=== PATIENT | male | born 1995 | race Caucasian/White ===

== ENCOUNTER 2016-07-24 06:08 | Emergency (ER) | payer SELFPAY ==
--- NOTE | 2016-07-24 06:49 | ED ---
Complaint/Male - History of Current Complaint Chief Complaint: EDUrogenitalProblems Time Seen by Provider: 07/24/16 06:32 Hx Obtained From: Patient Onset/Duration: Gradual Onset - started with burning urination 3 days ago, developed L side pain next day. pain is intermittant, sometimes relieved by repositioning. has tried no meds. Over past 24h has noted green penile d/c and diff starting urine stream Timing: Intermittent Severity Initially: Mild Severity Currently: Moderate Location: Flank - pt points to L lateral low back Character: Burning Aggravating Factor(s): Voiding Alleviating Factor(s): Nothing Associated Signs And Symptoms: Back Pain, Dysuria, Penile Discharge - Allergies/Home Medications Allergies/Adverse Reactions: Allergies Allergy/AdvReac Type Severity Reaction Status Date / Time No Known Allergies Allergy Verified 02/24/14 23:38 PMH/Surg Hx/FS Hx/Imm Hx Previously Healthy: Yes Endocrine/Hematology History: Denies: Hx Anticoagulant Therapy Cardiovascular History: Denies: Hx Hypertension Respiratory History: Reports: Hx Asthma - CHILD GI History: Denies: Other GI Disorders History: Denies: Hx Kidney Stones, Other Problems/Disorders Musculoskeletal History: Denies: Other Musculoskeletal History Sensory History: Denies: Hx Hearing Aid Neurological History: Denies: Other Neuro Impairments/Disorders Psychiatric History: Denies: Other Psychiatric Issues/Disorders Infectious Disease History: No Infectious Disease History: Denies: Traveled Outside the [place] in Last 30 Days - Family History Known Family History: Positive: None Negative: Cardiac Disease - Social History Occupation: Employed Full-time - [employer] Lives: Alone Alcohol Use: Occasionally Substance Use Type: Reports: None Smoking Status (MU): Never Smoked Tobacco Review Of Systems Constitutional: Positive: Negative. Negative: Fever, Chills Skin: Positive: Negative. Negative: Rash Respiratory: Positive: Negative Cardiovascular: Positive: Negative Gastrointestinal: Negative: Abdominal Pain, Vomiting, Diarrhea Genitourinary: Positive: Dysuria, Other - denies testicular pain, or penile/ scrotal lesions. Negative: Hematuria, Frequency Neurological: Positive: Negative Psychological: Positive: Negative All Other Systems Reviewed And Are Negative: Yes Physical Exam Triage Information Reviewed: Yes Vital Signs On Initial Exam: Initial Vitals Temp Pulse Resp BP Pulse Ox 97.6 F 74 16 131/79 100 07/24/16 06:17 07/24/16 06:17 07/24/16 06:17 07/24/16 06:17 07/24/16 06:17 Vital Signs Reviewed: Yes Appearance: Positive: Well-Appearing, No Pain Distress, Well-Nourished Skin: Positive: Warm, Skin Color Reflects Adequate Perfusion, Dry Respiratory/Lung Sounds: Positive: Clear to Auscultation Cardiovascular: Positive: Normal, RRR, Pulses are Symmetrical in both Upper and Lower Extremities Abdomen Description: Positive: Nontender, No Organomegaly, Soft. Negative: CVA Tenderness (R), CVA Tenderness (L) Bowel Sounds: Positive: Present Musculoskeletal: Positive: Normal, Strength/ROM Intact Neurological: Positive: Normal, Alert, Oriented to Person Place, Time Psychiatric: Positive: Normal Diagnostics - Vital Signs Vital Signs Temp Pulse Resp BP Pulse Ox 07/24/16 06:17 97.6 F 74 16 131/79 100 - Laboratory Result Diagrams: 07/24/16 06:35 07/24/16 06:35 Lab Statement: Any lab studies that have been ordered have been reviewed, and results considered in the medical decision making process. Complaint Male Course/Dx - Course Course Of Treatment: re-eval at 1015: pt reveals he is most concerned about poss STI (had unprotected sex 3 weeks ago). Back pain resolved at this time - Differential Dx/Diagnosis Differential Diagnosis/HQI/PQRI: Epididymitis, Pyelonephritis, Urinary Tract Infection, Other - STI, kidney stone Provider Diagnoses: dysuria
[2016-07-24 06:56] LABS: Hematocrit 47 % (42-52); Mean Corpuscular HGB Conc 34 g/dl (31-36); Mean Corpuscular Hemoglobin 30 pg (27-31); Mean Corpuscular Volume 88 fL (80-94); Mean Platelet Volume 9 um3 (7.4-10.4); Red Blood Count 5.32 10^6/ul (4.0-5.4); Red Cell Distribution Width 13 % (10.5-15); White Blood Count 5.7 10^3/ul (3.5-10.8)
[2016-07-24 07:07] LABS: Albumin 4.4 g/dL (3.2-5.2); BUN/Creatinine Ratio 18.2 (8-20); Calcium 9.6 mg/dL (8.6-10.3); EGFR African American 162.5 (>60); EGFR Non-African American 126.3 (>60); Globulin 2.6 g/dL (2-4); Total Bilirubin 0.5 mg/dL (0.2-1.0)
[2016-07-24 07:48] LABS: Urine Bilirubin Negative (Negative); Urine Glucose Negative (Negative); Urine Nitrite Negative (Negative)
[2016-07-24] MEDS ORDERED: Azithromycin TAB* 250 MG PO ONE (10:25)
[2016-07-24] MEDS ORDERED: cefTRIAXone VIAL(*) 250 MG VIAL IM ONE (10:26)
[2016-07-24 10:54] VITALS: BP 117/77
== END 2016-07-24 10:52 | disposition home or self-care (01) ==
LOC: ED 06:08
DX: R30.0 Dysuria (principal); M54.5 Low back pain; R10.84 Generalized abdominal pain
CPT/HCPCS: 36415; 80053; 81003; 83605; 85025; 87491; 87591; 96372; 99283; A9270-GY; J0696

== ENCOUNTER 2016-09-30 06:46 | Emergency (ER) | payer SELFPAY ==
[2016-09-30] MEDS ORDERED: Ibuprofen TAB* 600 MG PO ONE (08:26)
--- NOTE | 2016-09-30 08:58 | RAD ---
HISTORY: Right knee injury, hyperextension COMPARISONS: None VIEWS: 4, Frontal, lateral, axial, and oblique views of the right knee FINDINGS: BONE DENSITY: Normal. BONES: There is no displaced fracture. JOINTS: There is no arthropathy. There is no suprapatellar joint effusion or lipohemarthrosis. ALIGNMENT: There is no dislocation. SOFT TISSUES: Unremarkable. OTHER FINDINGS: None. IMPRESSION: NO ACUTE OSSEOUS INJURY. IF SYMPTOMS PERSIST, RECOMMEND REPEAT IMAGING.
[2016-09-30 10:59] VITALS: BP 132/76
--- NOTE | 2016-09-30 12:20 | ED ---
Rochelle Bess Salem, scribed for Martínez Post MD on 09/30/16 at 0850 . Lower Extremity - HPI Summary HPI Summary: Patient is 20 y/o male who presents to the ED with a right knee injury since yesterday. He reports he slipped on ice and fell hyperextending his knee. He denies pain in his hip or ankle, but reports swelling and pain with walking. Pt also denies any relevant SHx. - History of Current Complaint Chief Complaint: EDExtremityLower Stated Complaint: FALL//RIGHT KNEE PAIN Time Seen by Provider: 09/30/16 08:11 Hx Obtained From: Patient Mechanism Of Injury: Fall From A Standing Position Onset/Duration: Days - 1 day. Severity Initially: Moderate Severity Currently: Moderate Pain Intensity: 8 Pain Scale Used: 0-10 Numeric Location: Is Discrete @ - right knee. Associated Signs And Symptoms: Positive: Swelling, Knee Pain Aggravating Factor(s): Ambulation Alleviating Factor(s): Nothing - Allergies/Home Medications Allergies/Adverse Reactions: Allergies Allergy/AdvReac Type Severity Reaction Status Date / Time No Known Allergies Allergy Verified 02/24/14 23:38 PMH/Surg Hx/FS Hx/Imm Hx Endocrine/Hematology History: Denies: Hx Anticoagulant Therapy Cardiovascular History: Denies: Hx Hypertension Respiratory History: Reports: Hx Asthma - CHILD GI History: Denies: Other GI Disorders History: Denies: Hx Kidney Stones, Other Problems/Disorders Musculoskeletal History: Denies: Other Musculoskeletal History Sensory History: Denies: Hx Hearing Aid Neurological History: Denies: Other Neuro Impairments/Disorders Psychiatric History: Denies: Other Psychiatric Issues/Disorders Infectious Disease History: No Infectious Disease History: Denies: Traveled Outside the [place] in Last 30 Days - Family History Known Family History: Negative: Cardiac Disease, Diabetes - Social History Alcohol Use: Occasionally Substance Use Type: Reports: None Smoking Status (MU): Never Smoked Tobacco Review of Systems Negative: Fever Positive: Other - Right knee pain and edema. All Other Systems Reviewed And Are Negative: Yes Physical Exam - Summary Physical Exam Summary: The patient is well-nourished in no acute distress and in no acute pain. The skin is warm and dry and skin color reflects adequate perfusion. HEENT: The head is normocephalic and atraumatic. The pupils are equal and reactive. The conjunctivae are clear and without drainage. Nares are patent and without drainage. Mouth reveals moist mucous membranes and the throat is without erythema and exudate. The external ears are intact. The ear canals are patent and without drainage. The tympanic membranes are intact. Neck is supple with full range of motion and non-tender. There are no carotid bruits. Respiratory: Chest is non-tender. Lungs are clear to auscultation and breath sounds are symmetrical and equal. Cardiovascular: Hear is regular rate and rhythm. There is no murmur or rub auscultated. There is no peripheral edema and pulses are symmetrical and equal. Abdomen: The abdomen is soft and non-tender. There are normal bowel sounds heard in all four quadrants and there is no organomegaly palpated. Musculoskeletal: There is no back pain noted. Extremities are non-tender with full range of motion. There is good capillary refill. There is no peripheral edema or calf tenderness elicited. Right knee: Mild edema. Pain with extension of leg. No effusion. Not red or hot. Medial collateral ligament tenderness. No laxity noted. Unable to do Drawer test due to pain. Pain in insertion of patella and medial compartment of knee. Neurological: Patient is alert and oriented to person, place and time. The patient has symmetrical motor strength in all four extremities. Psychiatric: The patient has an appropriate affect and does not exhibit any anxiety or depression. Triage Information Reviewed: Yes Vital Signs On Initial Exam: Initial Vitals Temp Pulse Resp BP Pulse Ox 96.9 F 82 18 136/82 100 09/30/16 06:52 09/30/16 06:52 09/30/16 06:52 09/30/16 06:52 09/30/16 06:52 Vital Signs Reviewed: Yes - [place] Coma Scale Coma Scale Total: 15 Diagnostics - Vital Signs Vital Signs Temp Pulse Resp BP Pulse Ox 09/30/16 08:31 72 99 09/30/16 08:00 70 118/81 99 09/30/16 07:30 74 118/68 98 09/30/16 07:28 77 98 09/30/16 07:26 113/68 09/30/16 06:52 96.9 F 82 18 136/82 100 - Laboratory Lab Statement: Any lab studies that have been ordered have been reviewed, and results considered in the medical decision making process. - Radiology Knee XRAY Radiology Interpretation Completed By: Radiologist - IMPRESSION: NO ACUTE OSSEOUS INJURY. IF SYMPTOMS PERSIST, RECOMMEND REPEAT IMAGING. Re-Evaluation - Re-Evaluation First Eval Re-Evaluation Time: 10:34 Comment: Discussed plan with pt. He is agreeable. Lower Extremity Course/Dx - Course Course Of Treatment: Pt came in s/p right knee injury. Will take an X-ray and give him Ibuprofen. Will send pt home with immobilizer and crutches. - Diagnoses Differential Diagnosis/HQI/PQRI: Positive: Strain, Other - medial meniscius tear , Provider Diagnoses: Internal derangement. , Patella strain right knee. Discharge - Discharge Plan Condition: Stable Disposition: HOME Prescriptions: Hydrocodone-Acetaminophen [Hydrocodone/Acetaminophen 5-325 mg] 1 tab PO QID #20 tab MDD 4 Ibuprofen TAB* [Motrin TAB* 600 MG] 600 mg PO Q6H PRN #30 tab PRN Reason: pain Patient Education Materials: Hydrocodone/Acetaminophen (By mouth), Ibuprofen ( By mouth), Knee Pain (ED), Knee Immobilizer (ED) Forms: *Work Release Referrals: Yg Corbett MD [Medical Doctor] - Additional Instructions: Follow up with Dr. Corbett (ortho). The documentation as recorded by the Rochelle knapp Salem accurately reflects the service I personally performed and the decisions made by me, Martínez Post MD.
== END 2016-09-30 10:57 | disposition home or self-care (01) ==
LOC: ED 06:46
DX: S76.111A Strain of right quadriceps muscle, fascia and tendon, initial encounter (principal); M23.91 Unspecified internal derangement of right knee; R60.0 Localized edema; M25.561 Pain in right knee; W00.9XXA Unspecified fall due to ice and snow, initial encounter; Y93.9 Activity, unspecified; Y92.9 Unspecified place or not applicable
CPT/HCPCS: 99283; A9270-GY

== ENCOUNTER 2016-11-26 13:56 | Emergency (ER) | payer OTHER ==
--- NOTE | 2016-11-26 17:40 | RAD ---
Indication: Left pain and edema in the thigh.. Duplex Doppler sonography of the deep venous system of the left lower extremity deep venous system was performed. Bilaterally the common femoral veins appear patent and compressible. Left proximal greater saphenous vein, proximal deep femoral vein, femoral vein, popliteal vein, posterior tibial veins and peroneal veins appear patent and compressible. IMPRESSION: NO EVIDENCE OF DEEP VENOUS THROMBOSIS IS IDENTIFIED.
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
[2016-11-26] MEDS ORDERED: Ibuprofen TAB* 400 MG PO ONE (19:28)
--- NOTE | 2016-11-26 20:15 | RAD ---
Indication: Left shoulder pain. 4 views of the left shoulder demonstrates no fracture or dislocation. No other bone or joint abnormality is noted. IMPRESSION: No fracture of the left shoulder is noted.
--- NOTE | 2016-11-26 20:16 | RAD ---
Indication: Pelvic pain. Left hip pain 2 views of left hip including a single view of the pelvis demonstrates pelvic ring to be intact. There is no fracture or dislocation noted. No other bone or joint abnormality is identified. No fracture of the left hip is noted. IMPRESSION: No fracture of the pelvis is noted. No fracture of the left hip is noted.
--- NOTE | 2016-11-26 20:18 | RAD ---
Indication: Left ankle pain. 3 views of left ankle demonstrate soft tissue swelling. No fracture is identified. Ankle mortise is intact. IMPRESSION: Soft tissue swelling without evidence of fracture.
[2016-11-26 20:41] VITALS: BP 119/75
== END 2016-11-26 20:40 | disposition home or self-care (01) ==
LOC: ED 13:56
DX: M25.512 Pain in left shoulder (principal); M54.2 Cervicalgia; M25.552 Pain in left hip; M25.572 Pain in left ankle and joints of left foot; V89.2XXA Person injured in unspecified motor-vehicle accident, traffic, initial encounter
CPT/HCPCS: 70450; 72125; 99282; A9270-GY